=== PATIENT | female | born 1970 | race Caucasian/White ===

== ENCOUNTER → 2018-11-15 | Outpatient (CLI) | payer BC ==
[~2018-11-15] MED LIST: NORE5TAB2 PO; THYR15TA PO; THYR90TA PO
[2018-11-15 11:22] LABS: BASOPHILS # (AUTO) 0.03 x10^3/uL (0-0.1); BASOPHILS % (AUTO) 0 % (0-1); EOSINOPHILS # (AUTO) 0.25 x10^3/uL (0-0.4); EOSINOPHILS % (AUTO) 3 % (1-7); LYMPHOCYTES # (AUTO) 2.71 x10^3/uL (1-3.4); LYMPHOCYTES % (AUTO) 32 % (22-44); MD NO; MEAN CORPUSCULAR HEMOGLOBIN 32.3 pg (27.0-34.8); MEAN CORPUSCULAR HGB CONC 33.3 g/dL (32.4-35.8); MEAN PLATELET VOLUME 8.4 fL (7.4-10.4); MONOCYTES # (AUTO) 0.37 x10^3/uL (0.2-0.8); MONOCYTES % (AUTO) 4 % (2-9); NEUTROPHILS # (AUTO) 5.01 x10^3/uL (1.8-6.8); NEUTROPHILS % (AUTO) 60 % (42-75); PLATELET COUNT 247 x10^3/uL (130-400); RED BLOOD COUNT 4.65 x10^6/uL (3.82-5.3); RED CELL DISTRIBUTION WIDTH 13.3 % (9.6-15.2)
[2018-11-15 11:27] LABS: MICROSCOPIC NOT IND
[2018-11-15 11:36] LABS: CULTURE INDICATED? NO
== END | disposition home or self-care (01) ==
LOC: STAR 10:27
PROVIDERS: ATTEND Obstetrics & Gynecology
DX: Z01.818 Encounter for other preprocedural examination (principal); N80.0 Endometriosis of uterus; N92.0 Excessive and frequent menstruation with regular cycle; Z86.018 Personal history of other benign neoplasm
CPT/HCPCS: 36415; 81003; 84702; 85025

== ENCOUNTER 2018-11-28 05:35 | Day surgery (SDC) | payer BC ==
[~2018-11-28] VITALS: Ht 170.2 cm; Wt 81.0 kg
[2018-11-28] MEDS ORDERED: LACTATED RINGERS 1,000 ML IV SCH (06:16)
[2018-11-28 06:28] LABS: HCG UR SG 1.007 (1.003-1.030)
[2018-11-28] MEDS ORDERED: ACETAMINOPHEN 500 MG TABLET PO ONE (06:30)
[2018-11-28] MEDS ORDERED: GABAPENTIN 300 MG CAPSULE PO ONE (06:30)
[2018-11-28 06:35] VITALS: BP 152/98
[2018-11-28] MEDS ORDERED: FLUORESCEIN SODIUM 500 MG/5 ML ONE (06:50)
[2018-11-28] MEDS ORDERED: EPINEPHRINE 1 MG/ML, 1ML ONE (06:50)
[2018-11-28] MEDS ORDERED: BUPIVACAINE/PF 0.25% ONE (06:50)
[2018-11-28] MEDS ORDERED: MIDAZOLAM 1 MG/ML, 2ML ONE (07:21)
[2018-11-28] MEDS ORDERED: FENTANYL PF 250 MCG/5ML ONE (07:21)
[2018-11-28] MEDS ORDERED: LIDOCAINE JELLY 2%, 30GM ONE (07:22)
[2018-11-28] MEDS ORDERED: PROPOFOL 50 ML ONE ×2 (07:23→08:20)
[2018-11-28] MEDS ORDERED: SCOPOLAMINE PATCH, 1.5MG PATCH.TD72 TD ONE (07:30)
[2018-11-28] MEDS ORDERED: DIAZEPAM 5 MG TABLET PO ONE (07:30)
[2018-11-28] MEDS ORDERED: PROMETHAZINE 25 MG/ML, 1ML IV PRN (08:30)
[2018-11-28] MEDS ORDERED: ALBUTEROL/IPRATROPIUM 2.5MG/0.5MG, 3 ML NPPB PRN (08:30)
[2018-11-28] MEDS ORDERED: METOPROLOL 1 MG/ML, 5ML IV PRN (08:30)
[2018-11-28] MEDS ORDERED: hydrALAzine 20 MG/ML, 1ML IV PRN (08:30)
[2018-11-28] MEDS ORDERED: HYDROmorphone 2 MG/ML, 1ML IVPush PRN (08:30)
[2018-11-28] MEDS ORDERED: FENTANYL PF 100 MCG/2ML IV PRN (08:30)
[2018-11-28] MEDS ORDERED: ONDANSETRON 2MG/ML, 2ML IV PRN (08:30)
[2018-11-28] MEDS ORDERED: EPHEDRINE 50 MG/ML, 1ML IM PRN (08:30)
[2018-11-28] MEDS ORDERED: OXYcodone 5 MG/5 ML ORAL.SOL UDC PO PRN (08:30)
[2018-11-28] MEDS ORDERED: MIDAZOLAM 1 MG/ML, 2ML IV PRN (08:30)
[2018-11-28] MEDS ORDERED: LIDOCAINE-MPF 2% ,5ML ONE (09:04)
[2018-11-28] MEDS ORDERED: NEOSTIGMINE 1 MG/ML, 10ML ONE (09:04)
[2018-11-28] MEDS ORDERED: ONDANSETRON 2MG/ML, 2ML ONE (09:04)
[2018-11-28] MEDS ORDERED: ROCURONIUM 10MG/ML,5ML ONE (09:04)
[2018-11-28] MEDS ORDERED: GLYCOPYRROLATE 0.2MG/1ML, 5ML ONE (09:04)
[2018-11-28] MEDS ORDERED: CEFAZOLIN 1,000 MG ONE (09:04)
[2018-11-28] MEDS ORDERED: SUCCINYLCHOLINE 20 MG/ML, 10ML ONE (09:04)
[2018-11-28] MEDS ORDERED: DEXAMETHASONE 4 MG/ML, 1ML ONE (09:04)
[2018-11-28] MEDS ORDERED: PROPOFOL 10 MG/ML, 20ML ONE (09:04)
[2018-11-28] MEDS ORDERED: OXYcodone 5 MG/5 ML ORAL.SOL UDC ONE (09:57)
[2018-11-28] MEDS ORDERED: KETOROLAC 30 MG/1 ML ONE (10:20)
[2018-11-28] MEDS ORDERED: KETOROLAC 30 MG/1 ML IVPush SCH (10:30)
== END 2018-11-28 13:25 | disposition home or self-care (01) ==
LOC: OUT 05:35
PROVIDERS: ATTEND Obstetrics & Gynecology
DX: D25.9 Leiomyoma of uterus, unspecified (principal); D27.1 Benign neoplasm of left ovary; N92.0 Excessive and frequent menstruation with regular cycle; N83.8 Other noninflammatory disorders of ovary, fallopian tube and broad ligament; E03.9 Hypothyroidism, unspecified; Z98.890 Other specified postprocedural states
CPT/HCPCS: 58554; 81025; 88307; J0171; J0330; J0690; J1100; J1885; J2250; J2405; J2704; J2710; J3010; J3490; J7120

== ENCOUNTER 2019-06-19 06:33 | Outpatient (CLI) | payer BC ==
[~2019-06-19] VITALS: Ht 170.2 cm; Wt 82.1 kg
[2019-06-19 07:15] VITALS: BP 134/85
== END 2019-06-19 23:59 | disposition home or self-care (01) ==
LOC: INFUSION 06:33
PROVIDERS: ATTEND Nurse Practitioner Primary Care
DX: E27.49 Other adrenocortical insufficiency (principal); R79.9 Abnormal finding of blood chemistry, unspecified
CPT/HCPCS: 36415; 36591; 82533; 96374; J0834